=== PATIENT | female | born 1965 | race Caucasian/White ===

== ENCOUNTER 2017-02-01 11:57 | Emergency (ER) | payer SELFPAY ==
[~2017-02-01] VITALS: Ht 172.7 cm; Wt 109.0 kg
[~2017-02-01 11:57] MED LIST: CYCL1TAB29 PO; IBUP800T23 PO
[2017-02-01 12:03] VITALS: BP 107/69; PULSE 89; RESP 16; TEMP 99; O2SAT 95
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
[2017-02-01] MEDS ORDERED: IBUP800T23 PO (12:38)
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
== END 2017-02-01 14:48 | disposition home or self-care (01) ==
LOC: PHEFT 11:57
DX: S93.402A Sprain of unspecified ligament of left ankle, initial encounter (principal); F17.200 Nicotine dependence, unspecified, uncomplicated; Z86.2 Personal history of diseases of the blood and blood-forming organs and certain disorders involving the immune mechanism; Z86.59 Personal history of other mental and behavioral disorders; Z87.19 Personal history of other diseases of the digestive system; Z86.19 Personal history of other infectious and parasitic diseases; Z87.39 Personal history of other diseases of the musculoskeletal system and connective tissue; Z87.442 Personal history of urinary calculi; X50.1XXA Overexertion from prolonged static or awkward postures, initial encounter
CPT/HCPCS: 73610; 99283; E0113

== ENCOUNTER 2017-09-06 12:28 | Emergency (ER) | payer SELFPAY ==
[~2017-09-06] VITALS: Ht 172.7 cm; Wt 102.0 kg
[~2017-09-06 12:28] MED LIST changes: -CYCL1TAB29 PO
[2017-09-06 12:30] VITALS: BP 138/64; PULSE 86; RESP 16; TEMP 99.4; O2SAT 96
[2017-09-06] MEDS ORDERED: MOBI7.5T PO (13:42)
[2017-09-06] MEDS ORDERED: NORC5TAB PO (13:42)
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
--- NOTE | 2017-09-06 13:44 | RADRPT ---
EXAM DATE/TIME: 09/06/2017 13:26 [facility] COMPARISON: ANKLE LEFT COMPLETE ([id number]), February 01, 2017, 12:36. INDICATIONS : No known injury. Pain in right wrist since last night. MEDICAL HISTORY : None. SURGICAL HISTORY : None. ENCOUNTER: Initial ACUITY: 1 day PAIN SCORE: 10/10 LOCATION: Right Wrist FINDINGS: Three view examination of the right wrist demonstrates no soft tissue swelling, dislocation, or fract ure. The carpal bones are in normal alignment. The joint spaces are maintained. Bony mineralizatio n is normal. CONCLUSION: 1. No acute bony abnormality identified. Vadim Garsia MD on September 06, 2017 at 13:42 Board Certified Radiologist. This report was verified electronically.
[2017-09-06] MEDS ORDERED: IBUPROFEN 600 MG TAB PO ONE (14:00)
== END 2017-09-06 14:14 | disposition home or self-care (01) ==
LOC: PHEFT 12:28
DX: G56.01 Carpal tunnel syndrome, right upper limb (principal); M77.9 Enthesopathy, unspecified; F17.200 Nicotine dependence, unspecified, uncomplicated; Z86.2 Personal history of diseases of the blood and blood-forming organs and certain disorders involving the immune mechanism; Z86.59 Personal history of other mental and behavioral disorders; Z87.19 Personal history of other diseases of the digestive system; Z87.448 Personal history of other diseases of urinary system; Z86.19 Personal history of other infectious and parasitic diseases; Z87.39 Personal history of other diseases of the musculoskeletal system and connective tissue
CPT/HCPCS: 73110; 99284

== ENCOUNTER 2017-10-22 13:12 | Emergency (ER) | payer SELFPAY ==
[~2017-10-22 13:12] MED LIST changes: -IBUP800T23 PO; +MOBI7.5T PO; +NORC5TAB PO
[2017-10-22 13:29] VITALS: BP 122/78; PULSE 72; RESP 20; TEMP 98; O2SAT 96
[2017-10-22] MEDS ORDERED: IBUP1TAB7 PO (14:54)
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
[2017-10-22] MEDS ORDERED: KETOROLAC TROMETHAMINE 60 MG/2 ML (IM) VIAL IM ONE (15:00)
--- NOTE | 2017-10-22 15:59 | RADRPT ---
EXAM DATE/TIME: 10/22/2017 15:14 [facility] COMPARISON: No previous studies available for comparison. INDICATIONS : Right knee pain. MEDICAL HISTORY : None. SURGICAL HISTORY : None. ENCOUNTER: Initial ACUITY: 2 weeks PAIN SCORE: 6/10 LOCATION: Right knee. FINDINGS: 4 views of the right knee show mild medial joint space narrowing and osteophyte lipping. Preservation of the joint space involving the lateral compartment. No fracture or dislocation. No joint effusion. Soft tissues are unremarkable. CONCLUSION: Mild medial compartment osteoarthritis. No acute abnormality. Tyron Eubanks Jr., MD on October 22, 2017 at 15:56 Board Certified Radiologist. This report was verified electronically.
== END 2017-10-22 17:25 | disposition home or self-care (01) ==
LOC: PHEFT 13:12
DX: S83.91XA Sprain of unspecified site of right knee, initial encounter (principal); M17.11 Unilateral primary osteoarthritis, right knee; F17.200 Nicotine dependence, unspecified, uncomplicated; Z86.2 Personal history of diseases of the blood and blood-forming organs and certain disorders involving the immune mechanism; Z86.59 Personal history of other mental and behavioral disorders; Z87.19 Personal history of other diseases of the digestive system; Z87.448 Personal history of other diseases of urinary system; Z86.19 Personal history of other infectious and parasitic diseases; Z87.39 Personal history of other diseases of the musculoskeletal system and connective tissue; X50.1XXA Overexertion from prolonged static or awkward postures, initial encounter
CPT/HCPCS: 73564; 96372; 99284; E0113; J1885; L1830

== ENCOUNTER 2018-01-31 16:48 | Emergency (ER) | payer BC ==
[~2018-01-31] VITALS: Ht 170.2 cm; Wt 108.1 kg
[~2018-01-31 16:48] MED LIST changes: +IBUP1TAB7 PO; -MOBI7.5T PO; -NORC5TAB PO
[2018-01-31 17:17] VITALS: BP 142/75; PULSE 93; RESP 16; TEMP 99.4; O2SAT 97
[2018-01-31] MEDS ORDERED: SODIUM CHLOR 0.9% 1000 ML INJ 1,000 ML IV SCH (17:44)
[2018-01-31] MEDS ORDERED: FAMOTIDINE 20 MG/2 ML VIAL IV PUSH ONE (17:45)
[2018-01-31] MEDS ORDERED: ONDANSETRON HCL 4 MG/2 ML VIAL IVP ONE (17:45)
[2018-01-31] MEDS ORDERED: SODIUM CHLORIDE 0.9% FLUSH 10 ML FLUSH IV FLUSH PRN (17:45)
--- NOTE | 2018-01-31 17:49 | PD ---
HPI Chief Complaint: GI Complaint Time Seen by Provider: 17:40 Travel History International Travel<30 days: No Contact w/Intl Traveler<30days: No Traveled to known affect area: No History of Present Illness HPI 52-year-old female complains of abdominal pain with nausea vomiting and diarrhea. Patient states that symptoms started this morning. Patient states that abdominal pain intermittent cramping pain diffuse over the abdomen. Patient denies any pain radiation. Patient denies any fever chills. Patient has history of hep C in the past. Patient denies any dysuria frequency. Patient denies any vaginal discharge or bleeding. Patient denies any history of abdominal surgery in the past. Patient denies abdominal pain now. Patient status post cholecystectomy and appendectomy in the past. PFSH Past Medical History Hx Anticoagulant Therapy: No Anemia: Yes Arthritis: No Autoimmune Disease: No Anxiety: Yes Depression: Yes Cancer: No Cardiovascular Problems: No Cerebrovascular Accident: No Diabetes: No Diminished Hearing: No Endocrine: No Gastrointestinal Disorders: Yes GERD: No Genitourinary: Yes Headaches: No Hepatitis: Yes (HEP C) Hiatal Hernia: No Herniated Disk: Yes (L3, L4, L5) Immune Disorder: No Implanted Vascular Access Dvce: No Kidney Stones: Yes Musculoskeletal: No Neurologic: No Psychiatric: Yes Reproductive: No Respiratory: No Migraines: No Renal Failure: No Seizures: No Thyroid Disease: No Ulcer: No ?: Not Menopausal: Yes : 1 Para: 1 Tubal Ligation: Yes (1989) Past Surgical History Abdominal Surgery: Yes (gallbladder, tubal, appendix) AICD: No Appendectomy: Yes Arteriovenous Shunt: No Cardiac Surgery: No Cholecystectomy: Yes Ear Surgery: No Endocrine Surgery: No Eye Surgery: No Genitourinary Surgery: No Gynecologic Surgery: No Insulin Pump: No Joint Replacement: No Neurologic Surgery: No Oral Surgery: Yes (WISDOM TEETH EXTRACTED) Pacemaker: No Thoracic Surgery: No Other Surgery: Yes Social History Alcohol Use: Yes (SOCIAL) Tobacco Use: Yes (1ppd) Substance Use: Yes (WEED) Allergies-Medications (Allergen,Severity, Reaction): Coded Allergies: ciprofloxacin (Verified Allergy, Severe, NAUSEA, 01/31/18) morphine (Verified Allergy, Severe, Psychosis, 01/31/18) clindamycin (Verified Allergy, Unknown, Rash, 01/31/18) penicillin G (Verified Allergy, Unknown, Rash, 01/31/18) Reported Meds & Prescriptions Reported Meds & Active Scripts Active Lomotil (Diphenoxylate-Atropine) 2.5-0.025 Mg Tab 1 Tab PO Q6H PRN Bentyl (Dicyclomine HCl) 10 Mg Cap 10 Mg PO TID PRN Zofran Odt (Ondansetron Odt) 4 Mg Tab 4 Mg SL Q6HR PRN Reported Ibuprofen 800 Mg Tab 800 Mg PO Q6HR PRN Review of Systems General / Constitutional: No: Fever Eyes: No: Visual changes HENT: No: Headaches Cardiovascular: No: Chest Pain or Discomfort Respiratory: No: Shortness of Breath Gastrointestinal: Positive: Nausea, Vomiting, Diarrhea, Abdominal Pain Genitourinary: No: Dysuria Musculoskeletal: No: Pain Skin: No Rash Neurologic: No: Weakness Psychiatric: No: Depression Endocrine: No: Polydipsia Hematologic/Lymphatic: No: Easy Bruising Physical Exam Narrative GENERAL: Well-nourished, well-developed patient. SKIN: Focused skin assessment warm/dry. HEAD: Normocephalic. EYES: No scleral icterus. No injection or drainage. NECK: Supple, trachea midline. No JVD or lymphadenopathy. CARDIOVASCULAR: Regular rate and rhythm without murmurs, gallops, or rubs. RESPIRATORY: Breath sounds equal bilaterally. No accessory muscle use. GASTROINTESTINAL: Abdomen soft, non-tender, nondistended. MUSCULOSKELETAL: No cyanosis, or edema. BACK: Nontender without obvious deformity. No CVA tenderness. Neurologic exam normal. Data Data Last Documented VS Vital Signs Date Time Temp Pulse Resp B/P (MAP) Pulse Ox O2 Delivery O2 Flow Rate FiO2 01/31/18 20:26 82 18 111/62 (78) 97 Room Air 01/31/18 17:17 99.4 Orders Orders Complete Blood Count With Diff (01/31/18 17:44) Comprehensive Metabolic Panel (01/31/18 17:44) Lipase (01/31/18 17:44) Urinalysis - C+S If Indicated (01/31/18 17:44) Iv Access Insert/Monitor (01/31/18 17:44) Ecg Monitoring (01/31/18 17:44) Oximetry (01/31/18 17:44) Ondansetron Inj (Zofran Inj) (01/31/18 17:45) Sodium Chlor 0.9% 1000 Ml Inj (Ns 1000 M (01/31/18 17:44) Sodium Chloride 0.9% Flush (Ns Flush) (01/31/18 17:45) Famotidine Inj (Pepcid Inj) (01/31/18 17:45) Ondansetron Inj (Zofran Inj) (01/31/18 20:30) Labs Laboratory Tests Test 01/31/18 18:00 White Blood Count 16.8 TH/MM3 Red Blood Count 5.14 MIL/MM3 Hemoglobin 15.9 GM/DL Hematocrit 45.7 % Mean Corpuscular Volume 88.8 FL Mean Corpuscular Hemoglobin 31.0 PG Mean Corpuscular Hemoglobin Concent 34.9 % Red Cell Distribution Width 12.7 % Platelet Count 302 TH/MM3 Mean Platelet Volume 8.5 FL Neutrophils (%) (Auto) 86.1 % Lymphocytes (%) (Auto) 7.2 % Monocytes (%) (Auto) 3.7 % Eosinophils (%) (Auto) 1.5 % Basophils (%) (Auto) 1.5 % Neutrophils # (Auto) 14.4 TH/MM3 Lymphocytes # (Auto) 1.2 TH/MM3 Monocytes # (Auto) 0.6 TH/MM3 Eosinophils # (Auto) 0.3 TH/MM3 Basophils # (Auto) 0.3 TH/MM3 CBC Comment DIFF FINAL Differential Comment Blood Urea Nitrogen 12 MG/DL Creatinine 0.90 MG/DL Random Glucose 115 MG/DL Total Protein 8.4 GM/DL Albumin 3.7 GM/DL Calcium Level 8.5 MG/DL Alkaline Phosphatase 120 U/L Aspartate Amino Transf (AST/SGOT) 13 U/L Alanine Aminotransferase (ALT/SGPT) 21 U/L Total Bilirubin 0.5 MG/DL Sodium Level 136 MEQ/L Potassium Level 4.0 MEQ/L Chloride Level 102 MEQ/L Carbon Dioxide Level 24.7 MEQ/L Anion Gap 9 MEQ/L Estimat Glomerular Filtration Rate 66 ML/MIN Lipase 86 U/L [facility] Medical Decision Making Medical Screen Exam Complete: Yes Emergency Medical Condition: Yes Interpretation(s) 1850 PM. CBC WBC 16.8. 86 neutrophil. AST 13. ALT 21. Alkaline phosphatase 120. 2024 PM. CMP within normal limits. AST 13. Alkaline phosphatase 120. Differential Diagnosis Differential diagnosis including gastroenteritis, gastritis, PUD, pancreatitis, colitis, UTI, pyelonephritis, electrolyte imbalance, dehydration. Narrative Course 52-year-old female with abdominal pain, nausea vomiting diarrhea. Symptoms started this morning. Normal saline solution 1 L IV bolus. Pepcid 20 mg IV. Zofran 4 mg IV. 2031 PM. Reexamination patient has mild diffuse tenderness over the abdomen. No rebound tenderness. No mass. Nonspecific exam of the abdomen. Diagnosis Primary Impression: Gastroenteritis Patient Instructions: General Instructions Additional Instructions: Clear fluid today and advance diet tomorrow. Take medication as needed. Follow -up with personal physician. Return if persistent problem or worse. Med/Other Pt SpecificInfo: Prescription(s) given Scripts Diphenoxylate-Atropine (Lomotil) 2.5-0.025 Mg Tab 1 TAB PO Q6H Y for DIARRHEA, #10 TAB 0 Refills Prov: Wenceslao Nieto MD 01/31/18 Dicyclomine (Bentyl) 10 Mg Cap 10 MG PO TID Y for Bowel Management, #15 CAP 0 Refills Prov: Wenceslao Nieto MD 01/31/18 Ondansetron Odt (Zofran Odt) 4 Mg Tab 4 MG SL Q6HR Y for Nausea/Vomiting, #10 TAB 0 Refills Prov: Wenceslao Nieto MD 01/31/18 Disposition: 01 DISCHARGE HOME Condition: Stable Wenceslao Nieto MD Jan 31, 2018 17:49
[2018-01-31 18:09] VITALS: O2SAT 97
[2018-01-31 18:13] LABS: AUTOMATED NEUTROPHIL # 14.4 TH/MM3 (1.8-7.7); BASOPHIL # 0.3 TH/MM3 (0-0.2); BASOPHIL % 1.5 % (0.0-2.0); EOSINOPHIL # 0.3 TH/MM3 (0-0.4); EOSINOPHIL % 1.5 % (0.0-4.0); HEMATOCRIT 45.7 % (35.0-46.0); HEMOGLOBIN 15.9 GM/DL (11.6-15.3); LYMPH % 7.2 % (9.0-44.0); LYMPHOCYTE # 1.2 TH/MM3 (1.0-4.8); MEAN CELL VOLUME 88.8 FL (80.0-100.0); MEAN CORPUSCULAR HGB CONC 34.9 % (32.0-36.0); MEAN PLATELET VOLUME 8.5 FL (7.0-11.0); MONO % 3.7 % (0.0-8.0); MONOCYTE # 0.6 TH/MM3 (0-0.9); NEUT % 86.1 % (16.0-70.0); PLATELET COUNT 302 TH/MM3 (150-450); RED BLOOD COUNT 5.14 MIL/MM3 (4.00-5.30); RED CELL DISTRIBUTION WIDTH 12.7 % (11.6-17.2); WHITE BLOOD COUNT 16.8 TH/MM3 (4.0-11.0)
[2018-01-31 18:28] VITALS: BP 106/56; PULSE 83; RESP 18; O2SAT 97
[2018-01-31 18:29] LABS: CHLORIDE 102 MEQ/L (98-107); SODIUM (NA) 136 MEQ/L (136-145)
[2018-01-31 18:32] LABS: CALCIUM 8.5 MG/DL (8.5-10.1)
[2018-01-31 18:33] LABS: ALBUMIN 3.7 GM/DL (3.4-5.0); BICARBONATE 24.7 MEQ/L (21.0-32.0); BLOOD UREA NITROGEN 12 MG/DL (7-18); GLUCOSE,RANDOM 115 MG/DL (74-106)
[2018-01-31 18:35] LABS: ALT (GPT) 21 U/L (10-53); AST (GOT) 13 U/L (15-37)
[2018-01-31 18:36] LABS: GLOMERULAR FILTRATION RATE 66 ML/MIN (>89)
[2018-01-31 18:37] LABS: TOTAL BILIRUBIN ADULT 0.5 MG/DL (0.2-1.0); TOTAL PROTEIN 8.4 GM/DL (6.4-8.2)
[2018-01-31 18:38] LABS: ALKALINE PHOSPHATASE 120 U/L (45-117)
[2018-01-31] MEDS ORDERED: ZOFR4TAB3 SL (18:55)
[2018-01-31] MEDS ORDERED: DICY10 PO (18:55)
[2018-01-31] MEDS ORDERED: LOMO2.5T PO (18:55)
[2018-01-31 20:26] VITALS: BP 111/62; PULSE 82; RESP 18; O2SAT 97
[2018-01-31] MEDS ORDERED: ONDANSETRON HCL 4 MG/2 ML VIAL IV PUSH ONE (20:30)
== END 2018-01-31 20:47 | disposition home or self-care (01) ==
LOC: PHED 16:48
DX: K52.9 Noninfective gastroenteritis and colitis, unspecified (principal); F41.9 Anxiety disorder, unspecified; F32.9 Major depressive disorder, single episode, unspecified; F17.210 Nicotine dependence, cigarettes, uncomplicated; Z86.19 Personal history of other infectious and parasitic diseases; Z87.442 Personal history of urinary calculi; Z88.0 Allergy status to penicillin; Z88.5 Allergy status to narcotic agent; Z88.8 Allergy status to other drugs, medicaments and biological substances; Z79.899 Other long term (current) drug therapy
CPT/HCPCS: 80053; 83690; 85025; 96361; 96374; 96375; 96376; 99284; J2405; J7030

== ENCOUNTER 2018-02-12 17:18 | Emergency (ER) | payer BC ==
[~2018-02-12 17:18] MED LIST changes: +DICY10 PO; +LOMO2.5T PO; +ZOFR4TAB3 SL
[2018-02-12 17:35] VITALS: BP 135/61; PULSE 79; RESP 15; TEMP 98.3; O2SAT 94
--- NOTE | 2018-02-12 22:11 | PD ---
HPI Chief Complaint: Medical Clearance Time Seen by Provider: 17:34 Travel History International Travel<30 days: No Contact w/Intl Traveler<30days: No Traveled to known affect area: No History of Present Illness HPI 52-year-old female presents emergency department for evaluation of left arm soreness. She states the pain is from her elbow to her neck of her left arm. Denies any injury. States she woke up yesterday with this. She states today she can barely lift her arm without significant pain. Denies any other focal deficits weakness. No chest pain or tightness. No difficulty breathing. No other symptoms to report. PFSH Past Medical History Hx Anticoagulant Therapy: No Anemia: Yes Arthritis: No Autoimmune Disease: No Anxiety: Yes Depression: Yes Cancer: No Cardiovascular Problems: No Cerebrovascular Accident: No Diabetes: No Diminished Hearing: No Endocrine: No Gastrointestinal Disorders: Yes GERD: No Genitourinary: Yes Headaches: No Hepatitis: Yes (HEP C) Hiatal Hernia: No Herniated Disk: Yes (L3, L4, L5) Immune Disorder: No Implanted Vascular Access Dvce: No Kidney Stones: Yes Musculoskeletal: No Neurologic: No Psychiatric: Yes Reproductive: No Respiratory: No Migraines: No Renal Failure: No Seizures: No Thyroid Disease: No Ulcer: No Menopausal: Yes : 1 Para: 1 Tubal Ligation: Yes (1989) Past Surgical History Abdominal Surgery: Yes (gallbladder, tubal, appendix) AICD: No Appendectomy: Yes Arteriovenous Shunt: No Cardiac Surgery: No Cholecystectomy: Yes Ear Surgery: No Endocrine Surgery: No Eye Surgery: No Genitourinary Surgery: No Gynecologic Surgery: No Insulin Pump: No Joint Replacement: No Neurologic Surgery: No Oral Surgery: Yes (WISDOM TEETH EXTRACTED) Pacemaker: No Thoracic Surgery: No Other Surgery: Yes Social History Alcohol Use: Yes (SOCIAL) Tobacco Use: Yes (11/27) Substance Use: Yes (WEED) Allergies-Medications (Allergen,Severity, Reaction): Coded Allergies: ciprofloxacin (Verified Allergy, Severe, NAUSEA, 01/31/18) morphine (Verified Allergy, Severe, Psychosis, 01/31/18) clindamycin (Verified Allergy, Unknown, Rash, 01/31/18) penicillin G (Verified Allergy, Unknown, Rash, 01/31/18) Reported Meds & Prescriptions Reported Meds & Active Scripts Active Lomotil (Diphenoxylate-Atropine) 2.5-0.025 Mg Tab 1 Tab PO Q6H PRN Bentyl (Dicyclomine HCl) 10 Mg Cap 10 Mg PO TID PRN Zofran Odt (Ondansetron Odt) 4 Mg Tab 4 Mg SL Q6HR PRN Reported Ibuprofen 800 Mg Tab 800 Mg PO Q6HR PRN Review of Systems Except as stated in HPI: all other systems reviewed are Neg Physical Exam Narrative Well-nourished female patient. She appears nontoxic. She has even respirations. Normal heart rate. She will not move the left upper extremity when asked however when she does stand up she picks up her jacket and puts it over her shoulder. She speaks clearly to me. Data Data Last Documented VS Vital Signs Date Time Temp Pulse Resp B/P (MAP) Pulse Ox O2 Delivery O2 Flow Rate FiO2 02/12/18 17:35 98.3 79 15 135/61 (85) 94 Orders MDM Medical Decision Making Medical Screen Exam Complete: Yes Emergency Medical Condition: Yes Medical Record Reviewed: Yes Differential Diagnosis Osteoarthritic pain versus tendinitis versus neuropathy versus paresthesia versus cardiac etiology Narrative Course 52-year-old female presents emergency department for evaluation left arm pain since yesterday and difficulty moving it. Patient appears nontoxic. Workup was initiated in triage. Prior to that placement, patient chooses to leave. AMA: The risks of leaving against medical advice without further evaluation treatment were discussed with the patient. These risks include cardiac dysfunction, cardiac dysrhythmia, possible heart attack, possible stroke or . The patient indicated understanding of these risks and appeared to have the capacity to make this decision. Diagnosis Primary Impression: Radiculopathy affecting upper extremity Disposition: 07 AGAINST MEDICAL ADVICE Condition: Stable Bailey Moreau Feb 12, 2018 22:11
== END 2018-02-12 20:00 | disposition left against medical advice (07) ==
LOC: NED 17:18
DX: M54.10 Radiculopathy, site unspecified (principal)
CPT/HCPCS: 99281

== ENCOUNTER 2018-03-01 07:48 | Emergency (ER) | payer BC ==
[~2018-03-01] VITALS: Ht 172.7 cm; Wt 104.0 kg
[2018-03-01 07:51] VITALS: BP 131/58; PULSE 114; RESP 22; TEMP 98.7; O2SAT 91
[2018-03-01] MEDS ORDERED: SODIUM CHLORIDE 0.9% FLUSH 10 ML FLUSH IVF PRN (08:15)
[2018-03-01] MEDS ORDERED: methylPREDNISolone SOD SUCC 125 MG/2 ML VIAL IV PUSH ONE (08:15)
[2018-03-01] MEDS: RESP: ALBUTEROL 2.5 MG/IPRATROPIUM 0.5 MG NEB (SCH) INH (08:18)
[2018-03-01 08:20] VITALS: BP 131/58; PULSE 105; RESP 28; TEMP 98.7; O2SAT 92
[2018-03-01 08:30] VITALS: O2SAT 92
[2018-03-01 08:40] LABS: AUTOMATED NEUTROPHIL # 10.2 TH/MM3 (1.8-7.7); BASOPHIL # 0.4 TH/MM3 (0-0.2); BASOPHIL % 2.9 % (0.0-2.0); EOSINOPHIL # 0.3 TH/MM3 (0-0.4); EOSINOPHIL % 2.1 % (0.0-4.0); HEMATOCRIT 42.9 % (35.0-46.0); HEMOGLOBIN 14.9 GM/DL (11.6-15.3); LYMPH % 12.9 % (9.0-44.0); LYMPHOCYTE # 1.8 TH/MM3 (1.0-4.8); MEAN CELL VOLUME 87.7 FL (80.0-100.0); MEAN CORPUSCULAR HEMOGLOBIN 30.5 PG (27.0-34.0); MEAN CORPUSCULAR HGB CONC 34.8 % (32.0-36.0); MEAN PLATELET VOLUME 8.7 FL (7.0-11.0); MONO % 8.2 % (0.0-8.0); MONOCYTE # 1.1 TH/MM3 (0-0.9); NEUT % 73.9 % (16.0-70.0); PLATELET COUNT 341 TH/MM3 (150-450); RED BLOOD COUNT 4.89 MIL/MM3 (4.00-5.30); RED CELL DISTRIBUTION WIDTH 12.6 % (11.6-17.2); WHITE BLOOD COUNT 13.9 TH/MM3 (4.0-11.0)
[2018-03-01 08:48] LABS: CHLORIDE 98 MEQ/L (98-107); SODIUM (NA) 133 MEQ/L (136-145)
[2018-03-01 08:52] LABS: ALBUMIN 3.6 GM/DL (3.4-5.0); BLOOD UREA NITROGEN 11 MG/DL (7-18); CALCIUM 8.8 MG/DL (8.5-10.1); GLUCOSE,RANDOM 121 MG/DL (74-106)
[2018-03-01 08:55] LABS: ALT (GPT) 27 U/L (10-53); AST (GOT) 25 U/L (15-37); CREATININE 0.97 MG/DL (0.50-1.00); GLOMERULAR FILTRATION RATE 60 ML/MIN (>89)
[2018-03-01 08:56] LABS: TOTAL BILIRUBIN ADULT 0.7 MG/DL (0.2-1.0); TOTAL PROTEIN 8.2 GM/DL (6.4-8.2)
--- NOTE | 2018-03-01 08:56 | RADRPT ---
EXAM DATE/TIME: 03/01/2018 08:20 [facility] COMPARISON: CHEST SINGLE AP, November 07, 2016, 12:18. INDICATIONS : Short of breath, cough, chest pain due to cough. MEDICAL HISTORY : Hepatitis C. Renal calculi. Smoker. Herniated disk. SURGICAL HISTORY : Appendectomy. Cholecystectomy. Tubal ligation. ENCOUNTER: Initial ACUITY: 4 - 6 days PAIN SCORE: 9/10 LOCATION: chest FINDINGS: No new focal pleural or parenchymal opacities. Cardiomediastinal contours are within normal limits. B jose a thorax is intact. CONCLUSION: 1. No acute abnormality or significant interval change. Josue Bhakta MD on March 01, 2018 at 8:53 Board Certified Radiologist. This report was verified electronically.
[2018-03-01 08:57] LABS: ALKALINE PHOSPHATASE 118 U/L (45-117)
[2018-03-01 09:00] LABS: TROPONIN I LESS THAN 0.02 NG/ML (0.02-0.05)
[2018-03-01 09:40] VITALS: BP 130/64; PULSE 98; RESP 28; O2SAT 94
[2018-03-01 10:52] LABS: BLOOD, URINE LARGE (NEG); GLUCOSE,URINE NEG (NEG); KETONE, URINE NEG (NEG); NITRITE,URINE NEG (NEG); PH, URINE 5.5 (5.0-8.5); URINE COLOR YELLOW (YELLW/STRAW); URINE LEUKOCYTE ESTERASE NEG (NEG)
[2018-03-01 10:59] LABS: BILIRUBIN, URINE NEG (NEG)
[2018-03-01 11:02] LABS: SQUAMOUS EPITHELIAL CELL URINE 0-5 /hpf (0-5); WBC, URINE 0-2 /hpf (0-5)
[2018-03-01] MEDS ORDERED: POTASSIUM CHLORIDE 20 MEQ CONTROLLED RELEASE TAB PO ONE (11:30)
--- NOTE | 2018-03-01 11:37 | PD ---
HPI Chief Complaint: Respiratory Symptoms Time Seen by Provider: 08:03 Travel History International Travel<30 days: No Contact w/Intl Traveler<30days: No Traveled to known affect area: No History of Present Illness HPI This 52-year-old female is complaining of shortness of breath. She has been sick for several days. She does smoke cigarettes but has not been able to smoke for several days. She has not been diagnosed with COPD in the past. She has no history of heart disease. She has some crampy bilateral chest pain when she coughs. She has been coughing up initially was clear phlegm but lately has been yellow. PFSH Past Medical History Hx Anticoagulant Therapy: No Anemia: Yes Arthritis: No Autoimmune Disease: No Anxiety: Yes Depression: Yes Cancer: No Cardiovascular Problems: No Cerebrovascular Accident: No Diabetes: No Diminished Hearing: No Endocrine: No Gastrointestinal Disorders: Yes GERD: No Genitourinary: Yes Headaches: No Hepatitis: Yes (C) Hiatal Hernia: No Herniated Disk: Yes (L3, L4, L5) Immune Disorder: No Implanted Vascular Access Dvce: No Kidney Stones: Yes Musculoskeletal: No Neurologic: No Psychiatric: Yes Reproductive: No Respiratory: No Migraines: No Renal Failure: No Seizures: No Thyroid Disease: No Ulcer: No Tetanus Vaccination: > 5 Years Influenza Vaccination: No ?: Not Menopausal: Yes : 1 Para: 1 Tubal Ligation: Yes (1989) Past Surgical History Abdominal Surgery: Yes (Gallbladder, tubal, appendix) AICD: No Appendectomy: Yes Arteriovenous Shunt: No Cardiac Surgery: No Cholecystectomy: Yes Ear Surgery: No Endocrine Surgery: No Eye Surgery: No Genitourinary Surgery: No Gynecologic Surgery: No Insulin Pump: No Joint Replacement: No Neurologic Surgery: No Oral Surgery: Yes (All teeth extracted ) Pacemaker: No Thoracic Surgery: No Other Surgery: Yes Social History Alcohol Use: Yes (Rare) Tobacco Use: Yes (1 PPD) Substance Use: Yes (Marijuana daily ) Allergies-Medications (Allergen,Severity, Reaction): Coded Allergies: ciprofloxacin (Verified Allergy, Severe, NAUSEA, 03/01/18) morphine (Verified Allergy, Severe, Psychosis, 03/01/18) clindamycin (Verified Allergy, Unknown, Rash, 03/01/18) penicillin G (Verified Allergy, Unknown, Rash, 03/01/18) Reported Meds & Prescriptions Reported Meds & Active Scripts Active No Active Prescriptions or Reported Medications Review of Systems General / Constitutional: No: Fever, Chills Eyes: No: Diploplia, Blurred Vision HENT: No: Headaches, Vertigo Cardiovascular: No: Chest Pain or Discomfort, Palpitations Respiratory: Positive: Cough, Shortness of Breath, Wheezing Gastrointestinal: No: Vomiting, Diarrhea Genitourinary: No: Urgency Skin: No Rash, No Itching Neurologic: Positive: Weakness Endocrine: No: Heat Intolerance Physical Exam Narrative GENERAL: Well-developed female SKIN: Focused skin assessment warm/dry. HEAD: Atraumatic. Normocephalic. EYES: Pupils equal and round. No scleral icterus. No injection or drainage. ENT: No nasal bleeding or discharge. Mucous membranes pink and moist. NECK: Trachea midline. No JVD. CARDIOVASCULAR: Regular rate and rhythm. No murmur appreciated. RESPIRATORY: There is accessory muscle use. GASTROINTESTINAL: Abdomen soft, non-tender, nondistended. Hepatic and splenic margins not palpable. MUSCULOSKELETAL: No obvious deformities. No clubbing. No cyanosis. No edema. NEUROLOGICAL: Awake and alert. No obvious cranial nerve deficits. Motor grossly within normal limits. Normal speech. PSYCHIATRIC: Appropriate mood and affect; insight and judgment normal. Data Data Last Documented VS Vital Signs Date Time Temp Pulse Resp B/P (MAP) Pulse Ox O2 Delivery O2 Flow Rate FiO2 03/01/18 09:40 94 Nasal Cannula 4.00 03/01/18 09:40 98 28 130/64 (86) 03/01/18 08:20 98.7 Orders Orders Complete Blood Count With Diff (03/01/18 08:07) Comprehensive Metabolic Panel (03/01/18 08:07) B-Type Natriuretic Peptide (03/01/18 08:07) Troponin I (03/01/18 08:07) Urinalysis - C+S If Indicated (03/01/18 08:07) Influenzae A/B Antigen (03/01/18 08:07) Blood Culture (03/01/18 08:07) Iv Access Insert/Monitor (03/01/18 08:07) Electrocardiogram (03/01/18 08:07) Ecg Monitoring (03/01/18 08:07) Oximetry (03/01/18 08:07) Oxygen Administration (03/01/18 08:07) Chest, Single Ap (03/01/18 08:07) Sodium Chloride 0.9% Flush (Ns Flush) (03/01/18 08:15) Methylprednisolone So Succ Inj (Solumedr (03/01/18 08:15) Albuterol-Ipratropium Neb (Duoneb Neb) (03/01/18 08:15) Potassium Chloride (Kcl) (03/01/18 11:30) Labs Laboratory Tests Test 03/01/18 08:30 03/01/18 10:30 White Blood Count 13.9 TH/MM3 Red Blood Count 4.89 MIL/MM3 Hemoglobin 14.9 GM/DL Hematocrit 42.9 % Mean Corpuscular Volume 87.7 FL Mean Corpuscular Hemoglobin 30.5 PG Mean Corpuscular Hemoglobin Concent 34.8 % Red Cell Distribution Width 12.6 % Platelet Count 341 TH/MM3 Mean Platelet Volume 8.7 FL Neutrophils (%) (Auto) 73.9 % Lymphocytes (%) (Auto) 12.9 % Monocytes (%) (Auto) 8.2 % Eosinophils (%) (Auto) 2.1 % Basophils (%) (Auto) 2.9 % Neutrophils # (Auto) 10.2 TH/MM3 Lymphocytes # (Auto) 1.8 TH/MM3 Monocytes # (Auto) 1.1 TH/MM3 Eosinophils # (Auto) 0.3 TH/MM3 Basophils # (Auto) 0.4 TH/MM3 CBC Comment DIFF FINAL Differential Comment Blood Urea Nitrogen 11 MG/DL Creatinine 0.97 MG/DL Random Glucose 121 MG/DL Total Protein 8.2 GM/DL Albumin 3.6 GM/DL Calcium Level 8.8 MG/DL Alkaline Phosphatase 118 U/L Aspartate Amino Transf (AST/SGOT) 25 U/L Alanine Aminotransferase (ALT/SGPT) 27 U/L Total Bilirubin 0.7 MG/DL Sodium Level 133 MEQ/L Potassium Level 3.4 MEQ/L Chloride Level 98 MEQ/L Carbon Dioxide Level 25.0 MEQ/L Anion Gap 10 MEQ/L Estimat Glomerular Filtration Rate 60 ML/MIN Troponin I LESS THAN 0.02 NG/ML B-Type Natriuretic Peptide 20 PG/ML Urine Collection Type CLEAN CATCH Urine Color YELLOW Urine Turbidity CLEAR Urine pH 5.5 Urine Specific [place] 1.025 Urine Protein 100 mg/dL Urine Glucose (UA) NEG mg/dL Urine Ketones NEG mg/dL Urine Occult Blood LARGE Urine Nitrite NEG Urine Bilirubin NEG Urine Urobilinogen 1.0 MG/DL Urine Leukocyte Esterase NEG Urine RBC 20-24 /hpf Urine WBC 0-2 /hpf Urine Squamous Epithelial Cells 0-5 /hpf Microscopic Urinalysis Comment CULT NOT INDICATED Urine Collection Time 10:30 [facility] Medical Decision Making Medical Screen Exam Complete: Yes Emergency Medical Condition: Yes Medical Record Reviewed: Yes Differential Diagnosis Differential includes pneumonia, COPD exacerbation Narrative Course X-ray does not show any consolidation. She has been given Solu-Medrol and repeated nebs with improvement. He is complaining of some crampy pain and a potassium is 3.4. Her oxygen saturation and treatments is in the mid 90s. Lungs are clear. She is stable for discharge Diagnosis Primary Impression: COPD exacerbation Scripts Albuterol 18 GM Inh (Ventolin Hfa 18 GM Inh) 90 Mcg/Act Aer 2 PUFF INH Q4-6H Y for SHORTNESS OF BREATH, #1 INHALER 0 Refills Prov: Luis Antonio Ramon MD 03/01/18 Prednisone (Prednisone) 20 Mg Tab 20 MG PO DIRECTED, #24 TAB 0 Refills Take 60 MG daily x 4 days, then 40 MG x 4 days, then 20 MG daily x 4 days. Prov: Luis Antonio Ramon MD 03/01/18 Azithromycin (Zithromax Z-Avel) 250 Mg Dspk 250 MG PO DIRECTED for Infection, #1 DSPK 0 Refills 500 MG (2 tabs) day 1, then 1 tab days 2-5. Prov: Luis Antonio Ramon MD 03/01/18 Disposition: 01 DISCHARGE HOME Condition: Stable Luis Antonio Ramon MD Mar 01, 2018 11:37
[2018-03-01] MEDS ORDERED: PRED20 PO (11:48)
[2018-03-01] MEDS ORDERED: VENTAER INH (11:48)
[2018-03-01] MEDS ORDERED: ZITHTAB PO (11:48)
[2018-03-01 12:05] VITALS: BP 122/62; PULSE 87; RESP 22; O2SAT 92
--- NOTE | 2018-03-01 16:09 | EKG ---
Date Performed: 03/01/2018 Time Performed: 08:14:27 PTAGE: 52 years EKG: Sinus rhythm MINIMAL ST DEPRESSION BORDERLINE ECG PREVIOUS TRACING : 11/07/2016 17.44 Compared to previous tracing, heart rate has increased. DOCTOR: Andrews Young Interpretating Date/Time 03/01/2018 16:07:08
== END 2018-03-01 12:00 | disposition home or self-care (01) ==
LOC: PHED 07:48
DX: J44.1 Chronic obstructive pulmonary disease with (acute) exacerbation (principal); D64.9 Anemia, unspecified; F41.9 Anxiety disorder, unspecified; F17.200 Nicotine dependence, unspecified, uncomplicated; F12.90 Cannabis use, unspecified, uncomplicated; Z86.19 Personal history of other infectious and parasitic diseases; Z87.442 Personal history of urinary calculi; Z88.5 Allergy status to narcotic agent; Z88.0 Allergy status to penicillin
CPT/HCPCS: 71045; 80053; 81001; 83880; 84484; 85025; 87040; 87804; 93005; 94640; 94664; 96374; 99285; J2930